=== PATIENT | female | born 1970 | race African-American/Black ===

== ENCOUNTER 2019-06-10 08:43 | Emergency (ER) | payer SELFPAY ==
[2019-06-10 09:30] LABS: Basophils % 0.7 % (0-1.3); Hematocrit 36.8 % (36.0-45.0); Lymphocytes % 19.2 % (15.3-44.8); MPV 9.4 fL (7.6-11.3); RBC Red Blood Cell Count 4.13 M/uL (3.86-4.86)
[2019-06-10 09:47] LABS: ALT/SGPT 15 U/L (12-78); AST/SGOT 13 U/L (15-37); Albumin 3.4 g/dL (3.4-5.0); Alkaline Phosphatase 61 U/L (45-117); BUN Blood Urea Nitrogen 6 mg/dL (7-18); Bicarbonate 28 mmol/L (21-32); Bilirubin Total 0.7 mg/dL (0.2-1.0); Glucose Level 112 mg/dL (74-106); Lipase 63 U/L (73-393); Potassium 3.9 mmol/L (3.5-5.1); Protein, Total 7.7 g/dL (6.4-8.2); Sodium Level 140 mmol/L (136-145); Troponin (Emerg Dept Use Only) < 0.02 ng/mL (0.0-0.045)
[2019-06-10] MEDS ORDERED: DICYCLOMINE HCL 10 MG CAP ONE (10:25)
[2019-06-10] MEDS ORDERED: HYDROCODONE/APAP 10/325 TAB ONE (10:25)
[2019-06-10 10:46] LABS: Urine Blood 1+ (NEG); Urine Glucose NEGATIVE (NEG); Urine Protein NEGATIVE (NEG); Urine Specific Gravity 1.015 (1.005-1.030)
--- NOTE | 2019-06-10 10:46 | RAD REPORT ---
EXAM DESCRIPTION: CT - Chest For Pe Angio - 06/10/2019 10:04 am CLINICAL HISTORY: Chest pain. chest pain elevated DDimer COMPARISON: Extremity Venous Uni Ltd dated 06/10/2019 TECHNIQUE: CT angiogram of the pulmonary arteries was performed with MIP. All CT scans are performed using dose optimization technique as appropriate and may include automated exposure control or mA/KV adjustment according to patient size. FINDINGS: No evidence of pulmonary thromboembolism. No acute aortic finding demonstrated. The lungs are clear. No significant pericardial or pleural fluid. No concerning bony finding. IMPRESSION: No evidence of pulmonary thromboembolism. No acute lung findings.
--- NOTE | 2019-06-10 11:12 | RAD REPORT ---
EXAM DESCRIPTION: RAD - Chest Single View - 06/10/2019 9:48 am CLINICAL HISTORY: CHEST PAIN Chest pain. COMPARISON: Chest For Pe Angio dated 06/10/2019 FINDINGS: Portable technique limits examination quality. The lungs are grossly clear. The heart is normal in size. No displaced fractures. IMPRESSION: No acute intrathoracic process suspected.
--- NOTE | 2019-06-10 11:31 | RAD REPORT ---
EXAM DESCRIPTION: US - Extremity Venous Uni Ltd - 06/10/2019 11:14 am CLINICAL HISTORY: PAIN Leg swelling and edema. COMPARISON: No comparisons FINDINGS: Right lower extremity venous system was interrogated with Doppler technique. Partial throm bus is seen in the popliteal vein. Elsewhere, no DVT is evident. IMPRESSION: Partial thrombus is present in the popliteal vein.
--- NOTE | 2019-06-10 11:46 | ER ---
Nurse's Notes [facility] Name: Karine Salas Age: 49 yrs Sex: Female : 1970 Arrival Date: 06/10/2019 Time: 08:46 Bed 6 Private MD: Diagnosis: Acute embolism and thrombosis of right popliteal vein Presentation: 06/09 09:00 Chief complaint: Patient states: upper abdominal cramping, left sided chest pain and em right sided leg cramping that started 2 days ago, reports shortness of breath and nausea, denies fever, UTI s/s. Coronavirus screen: Proceed with normal triage. Patient denies a cough. Patient reports shortness of breath or difficulty breathing. Patient denies measured and/or subjective temperature greater than 100.4F prior to today's visit. Patient denies travel on a cruise ship or to a country the [facility] [place] 2[place] currently lists as an affected area. Patient denies contact with known and/or suspected case of COVID-19. Ebola Screen: Patient negative for fever greater than or equal to 101.5 degrees Fahrenheit, and additional compatible Ebola Virus Disease symptoms Patient denies exposure to infectious person. Patient denies travel to an Ebola-affected area in the 21 days before illness onset. No symptoms or risks identified at this time. Initial Sepsis Screen: Does the patient meet any 2 criteria? No. Patient's initial sepsis screen is negative. Does the patient have a suspected source of infection? No. Patient's initial sepsis screen is negative. Risk Assessment: Do you want to hurt yourself or someone else? Patient reports no desire to harm self or others. Onset of symptoms was June 08, 2019. 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 - Social history:: Smoking status: Patient denies any tobacco usage or history of. Screenin:05 Abuse screen: Denies threats or abuse. Nutritional screening: No deficits noted. em Tuberculosis screening: No symptoms or risk factors identified. Fall Risk None identified. Assessment: 09:08 General: Appears in no apparent distress. comfortable, Behavior is calm, cooperative, em Denies fever. Pain: Complains of pain in anterior aspect of left upper chest, right upper quadrant, left upper quadrant, right calf and right Achilles Pain currently is 9 out of 10 on a pain scale. Pain began 2-3 days ago. Neuro: Level of Consciousness is awake, alert, obeys commands, Oriented to person, place, time, situation, Appropriate for age Moves all extremities. Speech is normal, Facial symmetry appears normal. Cardiovascular: Reports chest pain, nausea, shortness of breath, Capillary refill < 3 seconds Patient's skin is warm and dry. Rhythm is sinus rhythm. Respiratory: Airway is patent Respiratory effort is even, unlabored, Respiratory pattern is regular, symmetrical. GI: Abdomen is flat, Bowel sounds present X 4 quads. Abd is soft X 4 quads Abdomen is tender to palpation in epigastric area, right upper quadrant and left upper quadrant Reports nausea, Patient currently denies diarrhea, vomiting. : Denies burning with urination, discharge, vaginal bleeding. Derm: Skin is intact, is healthy with good turgor, Skin is pink, warm \T\ dry. Musculoskeletal: Capillary refill < 3 seconds, Range of motion: intact in all extremities, Swelling absent. 10:20 Reassessment: Patient appears in no apparent distress at this time. Patient and/or em family updated on plan of care and expected duration. Pain level reassessed. Patient is alert, oriented x 3, equal unlabored respirations, skin warm/dry/pink. request something for pain, provider notified, received verbal orders for medication. 10:47 Reassessment: US at bedside. em 11:26 Reassessment: Patient appears in no apparent distress at this time. Patient and/or em family updated on plan of care and expected duration. Pain level reassessed. Patient is alert, oriented x 3, equal unlabored respirations, skin warm/dry/pink. Patient states feeling better. Patient states symptoms have improved. 12:08 Reassessment: will be discharged after medication is brought from pharmacy. em 12:29 Reassessment: Patient appears in no apparent distress at this time. Patient and/or em family updated on plan of care and expected duration. Pain level reassessed. Patient is alert, oriented x 3, equal unlabored respirations, skin warm/dry/pink. Patient denies pain at this time. Patient states feeling better. Vital Signs: 09:00 BP 105 / 66; Pulse 68; Resp 18; Temp 97.6; Pulse Ox 100% on R/A; Weight 88.9 kg; Height em 5 ft. 4 in. (162.56 cm); 09:30 BP 115 / 82; Pulse 61; Resp 14; Pulse Ox 99% ; sv 10:30 BP 115 / 65; Pulse 56; Resp 12; Pulse Ox 100% ; sv 11:25 BP 107 / 68; Pulse 52; Resp 18 S; Pulse Ox 98% on R/A; Pain 5/10; em 12:29 BP 110 / 64; Pulse 53; Resp 16; Pulse Ox 99% on R/A; Pain 0/10; em 09:00 Body Mass Index 33.64 (88.90 kg, 162.56 cm) em ED Course: 08:46 Patient arrived in ED. am2 08:49 Kaushik Garg MD is Attending Physician. ps1 09:04 Triage completed. em 09:04 Arm band placed on. em 09:05 Patient has correct armband on for positive identification. Placed in gown. Bed in low em position. Call light in reach. Side rails up X2. gambling monitor on. Pulse ox on. NIBP on. 09:08 Yasir Michael, RN is Primary Nurse. em 09:14 EKG done, by ED staff, reviewed by Kaushik Garg MD. Initial lab(s) drawn, by vt, sent kj1 to lab. Inserted saline lock: 22 gauge in right antecubital area, using aseptic technique. Blood collected. 09:14 Troponin (emerg Dept Use Only) Sent, Lipase, CMP Sent. kj1 09:49 CXR XRAY In Process Unspecified. EDMS 10:04 CT Chest For PE Angio In Process Unspecified. EDMS 10:20 Urine collected: clean catch specimen, cloudy. kj1 11:14 US Extremity Venous Unilateral Ltd In Process Unspecified. EDMS 12:47 No provider procedures requiring assistance completed. IV discontinued, intact, em bleeding controlled, No redness/swelling at site. Pressure dressing applied. Administered Medications: 10:23 Drug: Guy 10 mg-325 mg 1 tabs Route: PO; em 11:19 Follow up: Response: No adverse reaction; Marked relief of symptoms; Pain is decreased; em RASS: Alert and Calm (0) 10:24 Drug: Bentyl 20 mg Route: PO; em 11:19 Follow up: Response: No adverse reaction; Marked relief of symptoms; Pain is decreased em 12:45 Drug: Zofran (Ondansetron) 4 mg Route: IVP; Site: right antecubital; em 13:04 Follow up: Response: No adverse reaction; Marked relief of symptoms; Nausea is decreasedem 13:04 Drug: Eliquis 10 mg Route: PO; em 13:04 Follow up: Response: Medication administered at discharge. em Outcome: 11:45 Discharge ordered by MD. ps1 12:47 Discharged to home ambulatory. em 12:47 Condition: good 12:47 Discharge instructions given to patient, Instructed on discharge instructions, follow up and referral plans. medication usage, Demonstrated understanding of instructions, follow-up care, medications, Prescriptions given X 3. 13:04 Patient left the ED. em Signatures: Dispatcher [employer] Jody Araya RN RN Yasir Michael RN RN em Marcela Law am2 Kaushik Garg MD MD ps1 Sara Garcias kj1 Corrections: (The following items were deleted from the chart) 10: 09:33 TROPONIN (EMERG DEPT USE ONLY)+C.LAB.BRZ drawn and sent. kj1 kj1 10: 09:33 LIPASE+C.LAB.BRZ drawn and sent. kj1 kj1 10: 09:33 COMPREHENSIVE METABOLIC PANEL+C.LAB.BRZ drawn and sent. kj1 kj1
--- NOTE | 2019-06-10 11:46 | EDPHYS ---
Physician Documentation [facility] Name: Karine Salas Age: 49 yrs Sex: Female : 1970 Arrival Date: 06/10/2019 Time: 08:46 Bed 6 Private MD: ED Physician Kaushik Garg HPI: 06/09 10:12 This 49 yrs old Black Female presents to ER via Wheelchair with complaints of Abdominal ps1 Pain, Leg Pain, Chest Tightness. 10:12 Patient has multiple complaints but states that she has had abdominal pain that is ps1 epigastric associated with nausea and vomtiing for 3 days. Additionally has had chest pain without radiation for about the same amount of time. No cardiac history or other risk factors. Additionally had left leg pain. No hx of DVT. Is overweight but denies other medical problems. Pain is rated as mild to moderate. No risk factors for DVT. . 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 - Social history:: Smoking status: Patient denies any tobacco usage or history of. ROS: 10:17 Constitutional: Negative for fever, chills, and weight loss, Eyes: Negative for injury, ps1 pain, redness, and discharge, ENT: Negative for injury, pain, and discharge. 10:17 Cardiovascular: Positive for chest pain. 10:17 Abdomen/GI: Positive for abdominal pain, nausea and vomiting. 10:17 MS/extremity: Positive for pain, of the right leg. 10:17 Respiratory: Negative for shortness of breath, cough, wheezing, and pleuritic chest ps1 pain, Back: Negative for injury and pain, : Negative for injury, bleeding, discharge, and swelling, Skin: Negative for injury, rash, and discoloration, Neuro: Negative for headache, weakness, numbness, tingling, and seizure. Exam: 10:18 Constitutional: This is a well developed, well nourished patient who is awake, alert, ps1 and in no acute distress. Head/Face: Normocephalic, atraumatic. Eyes: Pupils equal round and reactive to light, extra-ocular motions intact. Lids and lashes normal. Conjunctiva and sclera are non-icteric and not injected. ENT: Nares patent. No nasal discharge, no septal abnormalities noted. Tympanic membranes are normal and external auditory canals are clear. Oropharynx with no redness, swelling, or masses, exudates, or evidence of obstruction, uvula midline. Mucous membranes moist. 10:18 Chest/axilla: Inspection: normal. 10:18 Cardiovascular: Rate: normal, Rhythm: regular. 10:18 Respiratory: the patient does not display signs of respiratory distress, Respirations: normal. 10:18 Abdomen/GI: Inspection: abdomen appears normal. 10:18 Musculoskeletal/extremity: Extremities: grossly normal except: noted in the right leg: pain. 10:18 Neuro: Orientation: is normal. Vital Signs: 09:00 BP 105 / 66; Pulse 68; Resp 18; Temp 97.6; Pulse Ox 100% on R/A; Weight 88.9 kg; Height em 5 ft. 4 in. (162.56 cm); 09:30 BP 115 / 82; Pulse 61; Resp 14; Pulse Ox 99% ; sv 10:30 BP 115 / 65; Pulse 56; Resp 12; Pulse Ox 100% ; sv 11:25 BP 107 / 68; Pulse 52; Resp 18 S; Pulse Ox 98% on R/A; Pain 5/10; em 12:29 BP 110 / 64; Pulse 53; Resp 16; Pulse Ox 99% on R/A; Pain 0/10; em 09:00 Body Mass Index 33.64 (88.90 kg, 162.56 cm) em MDM: 09:46 Patient medically screened. ps1 11:40 Data reviewed: vital signs, nurses notes, lab test result(s), EKG, radiologic studies, ps1 and as a result, I will discharge patient. Counseling: I had a detailed discussion with the patient and/or guardian regarding: the historical points, exam findings, and any diagnostic results supporting the discharge/admit diagnosis, lab results, radiology results, the need for outpatient follow up, to return to the emergency department if symptoms worsen or persist or if there are any questions or concerns that arise at home. ED course: CTPE negative. Neg EKG for acute changes. Neg troponin. US demonstrates partial occlusion of popliteal vein. No definitive treatment recommendations found. Will treat patient with Eliquis and have her follow up with PCP for ultrasound in 14 days for reevaluation. Return precautions given for worsening CP. Stable for DC. . 06/09 09:08 Order name: CBC with Diff; Complete Time: 09:47 ps1 06/09 09:08 Order name: CMP; Complete Time: 09:49 ps1 06/09 09:08 Order name: Lipase; Complete Time: 09:49 ps1 06/09 09:08 Order name: Troponin (emerg Dept Use Only); Complete Time: 09:49 ps1 06/09 09:08 Order name: DD; Complete Time: 09:47 ps1 06/09 10:26 Order name: Urine Dipstick--Ancillary (enter results); Complete Time: 10:47 eb 06/09 09:08 Order name: CXR XRAY; Complete Time: 11:17 ps1 06/09 09:36 Order name: CT Chest For PE Angio; Complete Time: 10:48 ps1 06/09 10:20 Order name: US Extremity Venous Unilateral Ltd; Complete Time: 11:32 ps1 06/09 10:26 Order name: Urine --Ancillary (enter results); Complete Time: 10:47 eb 06/09 09:08 Order name: Urine Dipstick-Ancillary (obtain specimen); Complete Time: 10:14 ps1 06/09 09:08 Order name: Urine Test (obtain specimen); Complete Time: 10:14 ps1 EC:01 Rate is 62 beats/min. Rhythm is regular. QRS [place] is Normal. [place] interval is normal. QRS ps1 interval is normal. QT interval is normal. No Q waves. T waves are Normal. No ST changes noted. Clinical impression: Normal ECG. Interpreted by me. Administered Medications: 10:23 Drug: [place] 10 mg-325 mg 1 tabs Route: PO; em 11:19 Follow up: Response: No adverse reaction; Marked relief of symptoms; Pain is decreased; em RASS: Alert and Calm (0) 10:24 Drug: Bentyl 20 mg Route: PO; em 11:19 Follow up: Response: No adverse reaction; Marked relief of symptoms; Pain is decreased em 12:45 Drug: Zofran (Ondansetron) 4 mg Route: IVP; Site: right antecubital; em 13:04 Follow up: Response: No adverse reaction; Marked relief of symptoms; Nausea is decreasedem 13:04 Drug: Eliquis 10 mg Route: PO; em 13:04 Follow up: Response: Medication administered at discharge. em Disposition: 06/10/19 11:45 Discharged to Home. Impression: Acute embolism and thrombosis of right popliteal vein. - Condition is Stable. - Discharge Instructions: Deep Vein Thrombosis. - Prescriptions for Eliquis 5 mg Oral tablet - take 2 tablet by ORAL route 10mg bid x 7 days then 5mg bid x 21 days. for 30 days; 70 tablet. Bentyl 20 mg Oral Tablet - take 2 tablet by ORAL route every 6 hours As needed; 40 tablet. Zofran 4 mg Oral Tablet - take 1 tablet by ORAL route every 12 hours As needed; 20 tablet. - Medication Reconciliation Form, Thank You Letter, Antibiotic Education, Prescription Opioid Use form. - Follow up: Private Physician; When: 10 - 14 days; Reason: Further diagnostic work-up, Recheck today's complaints, Continuance of care, Re-evaluation by your physician. Follow up: Emergency Department; When: As needed; Reason: Fever > 102 F, Trouble breathing, Worsening of condition. Signatures: Dispatcher [employer] EDYasir Mortensen RN RN em Margie Singh RN RN Kaushik Garg MD MD ps1 Corrections: (The following items were deleted from the chart) 13:04 11:45 06/10/2019 11:45 Discharged to Home. Impression: Acute embolism and thrombosis of em right popliteal vein. Condition is Stable. Forms are Medication Reconciliation Form, Thank You Letter, Antibiotic Education, Prescription Opioid Use. Follow up: Private Physician; When: 10 - 14 days; Reason: Further diagnostic work-up, Recheck today's complaints, Continuance of care, Re-evaluation by your physician. Follow up: Emergency Department; When: As needed; Reason: Fever > 102 F, Trouble breathing, Worsening of condition. ps1
[2019-06-10] MEDS ORDERED: ONDANSETRON 4 MG/2 ML VIAL ONE (12:45)
[2019-06-10] MEDS ORDERED: APIXABAN 5 MG TABLET PO ONE (13:00)
[2019-06-10 13:25] VITALS: TEMP 97.6
[2019-06-10 13:31] VITALS: BP 110/64; O2SAT 99
--- NOTE | 2019-06-11 12:05 | EKG ---
Test Date: 2019-06-10 Test Time: 09:01:19 Disk Operator: NEAL MEASUREMENT RESULTS: Intervals: Rate: 62 SD: 138 QRSD: 86 QT: 360 QTc: 365 [place]: P: 65 SD: 138 QRS: 43 T: 35 INTERPRETIVE STATEMENTS: Normal sinus rhythm Normal ECG No previous ECG available for comparison Electronically Signed On 06-11-19 12:03:05 CDT by Ramin Jones
== END 2019-06-10 13:04 | disposition home or self-care (01) ==
LOC: ER 08:43
DX: I82.431 Acute embolism and thrombosis of right popliteal vein (principal); Z88.0 Allergy status to penicillin
CPT/HCPCS: 36415; 71045; 71275; 80053; 81003; 81025; 83690; 84484; 85025; 85379; 93005; 93971; 96374; 99285; J2405; Q9967

== ENCOUNTER 2019-06-24 08:04 | Emergency (ER) | payer SELFPAY, OTHER ==
[2019-06-24] MEDS ORDERED: MORPHINE 4 MG/ML SYR ONE (08:45)
[2019-06-24] MEDS ORDERED: NA CHLORIDE 0.9% 1,000 ML ONE (08:45)
[2019-06-24] MEDS ORDERED: ONDANSETRON 4 MG/2 ML VIAL ONE (08:45)
[2019-06-24 09:11] LABS: Absolute Lymphocytes (CBC) 1.1 K/uL (0.7-4.9); Basophils % 0.7 % (0-1.3); Hematocrit 35.2 % (36.0-45.0); Lymphocytes % 17.5 % (15.3-44.8); MPV 9.3 fL (7.6-11.3); RBC Red Blood Cell Count 3.93 M/uL (3.86-4.86)
[2019-06-24 09:32] LABS: ALT/SGPT 12 U/L (12-78); AST/SGOT 9 U/L (15-37); Albumin 3.2 g/dL (3.4-5.0); Alkaline Phosphatase 60 U/L (45-117); BUN Blood Urea Nitrogen 4 mg/dL (7-18); Bicarbonate 29 mmol/L (21-32); Bilirubin Direct 0.3 mg/dL (0-0.2); Glucose Level 107 mg/dL (74-106); Lipase 47 U/L (73-393); Potassium 3.1 mmol/L (3.5-5.1); Protein, Total 7.3 g/dL (6.4-8.2); Sodium Level 139 mmol/L (136-145)
--- NOTE | 2019-06-24 11:09 | RAD REPORT ---
EXAM DESCRIPTION: CT - Abdomen Pelvis W Contrast - 06/24/2019 10:32 am CLINICAL HISTORY: Abdominal pain COMPARISON: none. TECHNIQUE: Computed axial tomography of the abdomen pelvis was obtained. 100 cc Isovue-300 was admin istered intravenously. Oral contrast was not requested which limits evaluation of bowel. All CT scans are performed using dose optimization technique as appropriate and may include automated exposure control or mA/KV adjustment according to patient size. FINDINGS: The liver, spleen, pancreas, adrenal and kidneys appear unremarkable. There is no evidence of diverticulitis. Normal appendix Small umbilical hernia IMPRESSION: No acute abnormality is displayed.
--- NOTE | 2019-06-24 11:18 | RAD REPORT ---
EXAM DESCRIPTION: [place] Single View06/24/2019 11:09 am CLINICAL HISTORY: fever COMPARISON: none FINDINGS: The lungs appear clear of acute infiltrate. The heart is normal size IMPRESSION: No acute abnormalities displayed
--- NOTE | 2019-06-24 12:30 | ER ---
Nurse's Notes [facility] Name: Karine Salas Age: 49 yrs Sex: Female : 1970 Arrival Date: 06/24/2019 Time: 08:07 Bed 5 Private MD: Diagnosis: Diarrhea, unspecified Presentation: 06/23 08:13 Chief complaint: Body aches, nausea, and diarrhea x 2-3 days. Denies cough/SOB/fever. hb Coronavirus screen: Proceed with normal triage. Ebola Screen: No symptoms or risks identified at this time. Initial Sepsis Screen: Does the patient meet any 2 criteria? No. Patient's initial sepsis screen is negative. Does the patient have a suspected source of infection? No. Patient's initial sepsis screen is negative. Risk Assessment: Do you want to hurt yourself or someone else? Patient reports no desire to harm self or others. Onset of symptoms was June 22, 2019. 08:13 Method Of Arrival: Ambulatory hb 08:13 Acuity: CHELLE 3 hb Historical: - Allergies: 08:14 PENICILLINS; hb - PSHx: 08:14 ; hb - Immunization history:: Adult Immunizations up to date. - Social history:: Smoking status: Patient denies any tobacco usage or history of. Screenin:23 Abuse screen: Denies threats or abuse. Nutritional screening: No deficits noted. em Tuberculosis screening: No symptoms or risk factors identified. Fall Risk None identified. Assessment: 08:15 General: Appears in no apparent distress. uncomfortable, well groomed, well developed, em well nourished, Behavior is calm, cooperative, appropriate for age, Denies fever. Pain: Complains of pain in "body aches" Pain currently is 10 out of 10 on a pain scale. Neuro: Level of Consciousness is awake, alert, obeys commands, Oriented to person, place, time, situation, Appropriate for age. Cardiovascular: Denies chest pain, shortness of breath, Heart tones S1 S2 present Capillary refill < 3 seconds Patient's skin is warm and dry. Rhythm is regular. Respiratory: Airway is patent Respiratory effort is even, unlabored, Respiratory pattern is regular, symmetrical, Breath sounds are clear bilaterally. Denies cough, shortness of breath labored breathing. GI: Abdomen is round non-distended, Bowel sounds present X 4 quads. Abd is soft and non tender X 4 quads. Reports lower abdominal pain, upper abdominal pain, diarrhea, nausea, vomiting. : Denies burning with urination. Derm: Skin is intact, is healthy with good turgor, Skin is pink, warm \\T\\ dry. Musculoskeletal: Capillary refill < 3 seconds, Range of motion: intact in all extremities. 08:40 Reassessment: placed on droplet precautions due to covid 19 swab. em 10:00 Reassessment: Patient appears in no apparent distress at this time. Patient and/or em family updated on plan of care and expected duration. Pain level reassessed. Patient is alert, oriented x 3, equal unlabored respirations, skin warm/dry/pink. Patient states feeling better. Patient states symptoms have improved. 10:26 Reassessment: Patient appears in no apparent distress at this time. wheeled to CT via em wheelchair. 11:16 Reassessment: Patient appears in no apparent distress at this time. Patient and/or em family updated on plan of care and expected duration. Pain level reassessed. Patient is alert, oriented x 3, equal unlabored respirations, skin warm/dry/pink. 12:30 Reassessment: Patient appears in no apparent distress at this time. Patient and/or em family updated on plan of care and expected duration. Pain level reassessed. Patient is alert, oriented x 3, equal unlabored respirations, skin warm/dry/pink. 13:14 Reassessment: Spoke with aCdence at [facility], issued PUI# [id number], outside lab notified.hb Vital Signs: 08:13 BP 120 / 100; Pulse 64; Resp 16; Temp 97.2; Pulse Ox 100% ; Weight 88.45 kg; Height 5 hb ft. 4 in. (162.56 cm); Pain 8/10; 09:00 BP 119 / 75; Pulse 52; Resp 18; Pulse Ox 100% on R/A; Pain 10/10; em 10:00 BP 129 / 70; Pulse 61; Resp 16; Pulse Ox 100% on R/A; Pain 3/10; em 11:16 BP 134 / 74; Pulse 57; Resp 16; Pulse Ox 100% on R/A; em 12:05 BP 136 / 74; Pulse 61; Resp 16; Pulse Ox 100% on R/A; mh5 08:13 Body Mass Index 33.47 (88.45 kg, 162.56 cm) hb ED Course: 08:07 Patient arrived in ED. am2 08:08 Leif De Oliveira PA is PHCP. damon 08:08 Ryan Moon MD is Attending Physician. jm 08:10 Yasir Michael, RN is Primary Nurse. em 08:14 Triage completed. hb 08:14 Arm band placed on. hb 08:23 Patient has correct armband on for positive identification. Placed in gown. Bed in low em position. Call light in reach. Side rails up X2. 08:55 Initial lab(s) drawn, by me, sent to lab. Inserted saline lock: 20 gauge in right em antecubital area, using aseptic technique. Blood collected. 09:00 Flu and/or RSV swab sent to lab. covid-19 swab sent to lab. em 10:33 CT Abd/Pelvis - IV Contrast Only In Process Unspecified. EDMS 11:10 Chest Single View XRAY In Process Unspecified. EDMS 12:48 No provider procedures requiring assistance completed. IV discontinued, intact, em bleeding controlled, No redness/swelling at site. Pressure dressing applied. Administered Medications: 08:55 Drug: NS 0.9% 1000 ml Route: IV; Rate: 1 bolus; Site: right antecubital; em 12:49 Follow up: IV Status: Completed infusion; IV Intake: 1000ml em 08:55 Drug: Zofran (Ondansetron) 4 mg Route: IVP; Site: right antecubital; em 10:00 Follow up: Response: No adverse reaction; Marked relief of symptoms; Nausea is decreasedem 08:57 Drug: morphine 4 mg Route: IVP; Site: right antecubital; em 10:00 Follow up: Response: No adverse reaction; Marked relief of symptoms; Pain is decreased; em RASS: Alert and Calm (0) 12:48 Drug: K-Lyte Effervescent Tablet 50 mEq Route: PO; em 12:54 Follow up: Response: No adverse reaction em 12:48 Drug: Tylenol 650 mg Route: PO; em 12:54 Follow up: Response: No adverse reaction em Intake: 12:49 IV: 1000ml; Total: 1000ml. em Outcome: 12:30 Discharge ordered by MD. joseph 12:48 Discharged to home ambulatory. em 12:48 Condition: good 12:48 Discharge instructions given to patient, Instructed on discharge instructions, follow up and referral plans. medication usage, Demonstrated understanding of instructions, follow-up care, medications, Prescriptions given X 3. 13:06 Patient left the ED. em Addendum: 06/28/2019 16:07 Addendum: Other attempted to contact pt regarding COVID-19 swab results. Left message d m5 with family member to have her call me back. 06/29/2019 10:10 Addendum: Other pt notified of negative Covid-19 swab result. Pt advised to continue to d m5 monitor symptoms, to remain in isolation until fever free for 72 hours without medication or 7 days from symptom onset and to return to the ED is symptoms worsen. Signatures: Dispatcher [employer] Sandra Novak RN RN dm5 Leif De Oliveira PA PA jmm Munoz, Edgar, RN RN em Baxter, Heather, RN RN hb Martinez, Maria [facility] Marcela Law [facility] Corrections: (The following items were deleted from the chart) 06/23 13:16 13:14 Reassessment: Spoke with Cadence at [facility], issued PUI# [id number], outside lab hb notified. hb
--- NOTE | 2019-06-24 12:31 | EDPHYS ---
Physician Documentation [facility] Name: Karine Salas Age: 49 yrs Sex: Female : 1970 Arrival Date: 06/24/2019 Time: 08:07 Bed 5 Private MD: ED Physician Ryan Moon HPI: 06/23 08:11 This 49 yrs old Black Female presents to ER via Ambulatory with complaints of body jmm aches, Nausea, Diarrhea. 08:11 The patient presents to the emergency department with nausea, diarrhea, abdominal pain. jmm Onset: The symptoms/episode began/occurred gradually, 1 day(s) ago. Possible causes: unknown. The symptoms are aggravated by nothing. The symptoms are alleviated by nothing. Associated signs and symptoms: Pertinent positives: diarrhea, nausea. This is a 49 year old female with no chronic medical conditions that presents to the ED with complaints of abdominal pain and diarrhea beginning yesterday. Patient also complains of body aches but denies known fever. Denies vomiting. Patient recently diagnosed with DVT earlier this month. Patient is currently taking eliquis. Denies sob, cough, or chest pain. A member of her restorationism was recently diagnosed with COVID-19. Historical: - Allergies: 08:14 PENICILLINS; hb - PSHx: 08:14 ; hb - Immunization history:: Adult Immunizations up to date. - Social history:: Smoking status: Patient denies any tobacco usage or history of. ROS: 08:11 Constitutional: Positive for body aches. jmm 08:11 Respiratory: Negative for cough, shortness of breath. 08:11 Abdomen/GI: Positive for abdominal pain, nausea, diarrhea. 08:11 All other systems are negative. Exam: 08:11 Constitutional: This is a well developed, well nourished patient who is awake, alert, jmm and in no acute distress. Head/Face: atraumatic. Eyes: EOMI, no conjunctival erythema appreciated ENT: Moist Mucus Membranes Neck: Trachea midline, Supple Chest/axilla: Normal chest wall appearance and motion. Cardiovascular: Regular rate and rhythm. No edema appreciated Respiratory: Normal respirations, no respiratory distress appreciated 08:11 Back: Normal ROM Skin: General appearance color normal MS/ Extremity: Moves all extremities, no obvious deformities appreciated, no edema noted to the lower extremities Neuro: Awake and alert, normal gait Psych: Behavior is normal, Mood is normal, Patient is cooperative and pleasant 08:11 Abdomen/GI: Inspection: abdomen appears normal, Bowel sounds: normal, Palpation: soft, mild abdominal tenderness, in the umbilical area. Vital Signs: 08:13 BP 120 / 100; Pulse 64; Resp 16; Temp 97.2; Pulse Ox 100% ; Weight 88.45 kg; Height 5 hb ft. 4 in. (162.56 cm); Pain 8/10; 09:00 BP 119 / 75; Pulse 52; Resp 18; Pulse Ox 100% on R/A; Pain 10/10; em 10:00 BP 129 / 70; Pulse 61; Resp 16; Pulse Ox 100% on R/A; Pain 3/10; em 11:16 BP 134 / 74; Pulse 57; Resp 16; Pulse Ox 100% on R/A; em 12:05 BP 136 / 74; Pulse 61; Resp 16; Pulse Ox 100% on R/A; mh5 08:13 Body Mass Index 33.47 (88.45 kg, 162.56 cm) hb MDM: 08:11 Patient medically screened. siomara 12:28 Data reviewed: vital signs, nurses notes. Counseling: I had a detailed discussion with jake the patient and/or guardian regarding: the historical points, exam findings, and any diagnostic results supporting the discharge/admit diagnosis, lab results, radiology results, the need for outpatient follow up, to return to the emergency department if symptoms worsen or persist or if there are any questions or concerns that arise at home. ED course: Patient is alert and non toxic in appearance in the ED. No signs of resp distress. Abdominal pain is decreased in the ED. Patient is advised to follow up with pcp and otherwise given strict return precautions. patient understood and agrees with the plan of care. . 06/23 08:25 Order name: Basic Metabolic Panel; Complete Time: 10:38 [facility] 06/23 08:25 Order name: CBC with Diff; Complete Time: 10:38 [facility] 06/23 08:25 Order name: Creatinine for Radiology; Complete Time: 10:38 [facility] 06/23 08:25 Order name: Hepatic Function; Complete Time: 10:38 [facility] 06/23 08:25 Order name: Lipase; Complete Time: 10:38 [facility] 06/23 08:25 Order name: COVID-19 [facility] 06/23 08:25 Order name: CT Abd/Pelvis - IV Contrast Only; Complete Time: 11:22 [facility] 06/23 08:31 Order name: Flu; Complete Time: 10:38 [facility] 06/23 10:38 Order name: Chest Single View XRAY; Complete Time: 11:22 [facility] 06/23 08:25 Order name: IV Saline Lock; Complete Time: 09:07 [facility] 06/23 08:25 Order name: Labs collected and sent; Complete Time: 09:07 [facility] Administered Medications: 08:55 Drug: NS 0.9% 1000 ml Route: IV; Rate: 1 bolus; Site: right antecubital; em 12:49 Follow up: IV Status: Completed infusion; IV Intake: 1000ml em 08:55 Drug: Zofran (Ondansetron) 4 mg Route: IVP; Site: right antecubital; em 10:00 Follow up: Response: No adverse reaction; Marked relief of symptoms; Nausea is decreasedem 08:57 Drug: morphine 4 mg Route: IVP; Site: right antecubital; em 10:00 Follow up: Response: No adverse reaction; Marked relief of symptoms; Pain is decreased; em RASS: Alert and Calm (0) 12:48 Drug: K-Lyte Effervescent Tablet 50 mEq Route: PO; em 12:54 Follow up: Response: No adverse reaction em 12:48 Drug: Tylenol 650 mg Route: PO; em 12:54 Follow up: Response: No adverse reaction em Disposition: 14:52 Co-signature as Attending Physician, Ryan Moon MD I agree with the assessment and [facility] plan of care. Disposition: 06/24/19 12:30 Discharged to Home. Impression: Diarrhea, unspecified. - Condition is Stable. - Discharge Instructions: Food Choices to Help Relieve Diarrhea, Adult. - Prescriptions for Zofran ODT 4 mg Oral tablet,disintegrating - place 1 tablet by TRANSLINGUAL route every 4-6 hours; 20 tablet. Bentyl 20 mg Oral Tablet - take 1 tablet by ORAL route every 6 hours As needed; 20 tablet. - Medication Reconciliation Form, Thank You Letter, Antibiotic Education, Prescription Opioid Use, Work release form form. - Follow up: Private Physician; When: 2 - 3 days; Reason: Recheck today's complaints, Continuance of care, Re-evaluation by your physician. Signatures: Dispatcher [employer] José Wong MD MD cha Mickail, Joel, PA PA [facility] Yasir Michael, RN RN em Cadence Cochran RN RN hb Wadley, Terrence, MD MD tw4 Corrections: (The following items were deleted from the chart) 09:48 08:11 This is a 49 year old female with no chronic medical conditions that presents to [facility] the ED with complaints of abdominal pain and diarrhea beginning yesterday. Patient also complains of body aches but denies known fever. Denies vomiting. Patient recently diagnosed with DVT earlier this month. Patient is currently taking eliquis. Denies sob, cough, or chest pain. . [facility] 13:06 12:30 06/24/2019 12:30 Discharged to Home. Impression: Diarrhea, unspecified. Condition em is Stable. Forms are Medication Reconciliation Form, Thank You Letter, Antibiotic Education, Prescription Opioid Use. Follow up: Private Physician; When: 2 - 3 days; Reason: Recheck today's complaints, Continuance of care, Re-evaluation by your physician. [facility]
[2019-06-24] MEDS ORDERED: POTASSIUM 25 MEQ EFFERV TAB ONE (12:42)
[2019-06-24] MEDS ORDERED: ACETAMINOPHEN 325 MG TABLET ONE (12:51)
[2019-06-24 13:13] VITALS: TEMP 97.2; O2SAT 100
[2019-06-24 13:18] VITALS: BP 136/74
== END 2019-06-24 13:06 | disposition home or self-care (01) ==
LOC: ER 08:04
DX: R19.7 Diarrhea, unspecified (principal); Z20.828 Contact with and (suspected) exposure to other viral communicable diseases; Z88.0 Allergy status to penicillin
CPT/HCPCS: 36415; 71045; 74177; 80048; 80076; 83690; 85025; 87804; 96361; 96374; 96375; 99284; J2405; J7030; Q9967; U0001